=== PATIENT | female | born 1950 | race Caucasian/White ===

== ENCOUNTER 2025-05-06 14:53 | Inpatient (IN) | payer MEDICARE, SELFPAY ==
[2025-05-06] VITALS (9 sets, daily range): BP systolic 119–171; BP diastolic 59–89; PULSE 62–90; RESP 14–16; TEMP 36.7–37.2; O2SAT 9–99; BMI 21.3
--- NOTE | 2025-05-06 15:05 | ECG_ITS ---
Test Reason : WEAKNESS Blood Pressure : */* mmHG Vent. Rate : 84 BPM Atrial Rate : 84 BPM P-R Int : 150 ms QRS Dur : 110 ms QT Int : 362 ms P-R-T Axes : 63 67 41 degrees QTcB Int : 427 ms Normal sinus rhythm Incomplete right bundle branch block Borderline ECG No previous ECGs available Referred By: Kelly Leigh Electronically Signed By: William Batista
--- NOTE | 2025-05-06 15:17 | ED_ITS ---
HPI - Weakness General Chief complaint: General Medical Stated complaint: WEAK Time Seen by Provider: 05/06/25 15:04 Source: patient, EMS and old records reviewed Mode of arrival: ambulatory Limitations: no limitations History of Present Illness ED Provider: SABRINA HPI Narrative: 74 yo female with PMH of HTN on amlodipine and lisinopril. She also started venlafaxine for depression 3 days ago. She has been more depressed lately and eating and drinking less. She was with her family outside in sun x 1 hour started to get very weak, unable to stand and became sweaty. She had no CP/SOB. She admits to only drinkin 1/2 cup of water, cereal for breakfast and some crackers and maybe an ounce of cheese. She says the heat and maybe her depression ahs been affecting her appetite MD Complaint: generalized weakness Onset (ago): hour(s) (1) Duration: intermittent Location: generalized Migration: none Severity: moderate Relieving factors: none Exacerbating factors: movement and exertion Context: new medication and other Associated symptoms: loss of appetite Related Data Allergies Allergy/AdvReac Type Severity Reaction Status Date / Time No Known Allergies Allergy Verified 05/06/25 15:22 Review of Systems 2 Review of Systems: Constitutional : No Fever, No Chills, pos Fatigue, pos anorexia ENT/Mouth : No sore throat, No Rhinorrhea Eyes: No Eye Pain, No Swelling, No Redness Cardiovascular : No Chest Pain, No SOB, No Dyspnea on Exertion Respiratory : No Cough, No Sputum Gastrointestinal : No Nausea, No Vomiting, No Diarrhea, No abdominal Pain Genitourinary : No Dysuria, No Urinary Frequency Musculoskeletal : No joint pain, No Myalgias, No Joint Swelling Skin : No Skin Lesions, No rash Neuro : pos Weakness, No Numbness, No Dizziness, positive Headache All other systems reviewed and are negative [facility] Past Medical History Attestation statement: The following information was validated with the patient. Source: old records reviewed Medical History Depression HTN (hypertension) Social History Social History (Updated 05/06/25 @ 16:22 by Kelly Leigh DO) Patient Tobacco Use Status: Never used Tobacco Advance Directives: Yes Advance Directives Information Provided: No Advance Directives on File: No Physical Exam 2 Vital Signs: Vital Signs: Last Vital Signs Temp 98.9 F 05/06/25 15:21 Pulse 86 05/06/25 15:21 Resp 16 05/06/25 15:21 BP 159/70 H 05/06/25 15:21 Pulse Ox 98 05/06/25 15:21 O2 Del Method Room Air 05/06/25 15:21 BMI result Body Mass Index 21.3 Appearance: Alert. Oriented X3. No acute distress. Eyes: Pupils equal, round and reactive to light. ENT: Pharynx dry MM Neck: Normal inspection. Neck supple. CVS: Normal heart rate and rhythm. Pulses normal. Respiratory: No respiratory distress. Breath sounds normal. Abdomen: Soft and nontender. Skin: Skin warm and dry. pale skin color. Poor skin turgor Extremities: No lower extremity edema. Neuro: Oriented X 3. No motor deficit. No sensory deficit. CN2-12 intact Medications Administered Discontinued Medications Generic Name Dose Route Start Last Admin Trade Name Freq PRN Reason Stop Dose Admin Lactated Ringer's 1,000 mls @ 999 mls/hr 05/06/25 15:30 05/06/25 16:22 Lr IV 05/06/25 16:30 999 mls/hr .Q1H1M ONE Administration Medical Decision Making Medical Decision Making [facility] [place] Narrative: 74 yo female with PMH of HTN on lisinopril and amlodipine recent poor appetite possibly due to depression just started venlafaxine x 3 days ago now here with malaise, fatigue, weakness, appears dry clinically - will obtain labs, EKG, start hydration. She has no CP/SOB, no infectious symptoms and she has normal neuro exam. Differential Diagnosis Differential Diagnoses: The differential diagnosis associated with the presentation includes dehydration, depression, med reaction Admission/Observation Consideration of admission/observation: Escalation of care including admission/observation considered will admit for close Na repletion and checks Consult Healthcare Provider Management of the patient was discussed with: Switchboard Inspector Dr. Marietta mccormick ICU level of care Dr. Sawyer aware will admit Lab Data [facility] [place] Lab Attestation statement: I reviewed the patient's lab results. 05/06/25 15:45 05/06/25 15:45 Labs: Lab Results 05/06/25 Range/Units 15:45 WBC 7.0 (4.8-10.8) X10*3/uL RBC 3.61 L (4.20-5.50) X10*6/uL Hgb 10.2 L (12.0-16.0) g/dl Hct 28.1 L (37.0-47.0) % MCV 77.8 L (80.0-98.0) fL MCH 28.3 (27.0-33.0) pg MCHC 36.3 H (31.0-35.0) g/dl RDW 13.0 (11.0-16.0) % Plt Count 251 (160-400) X10*3/uL MPV 8.1 L (9.4-12.3) fL Immature Gran % (Auto) 0.7 H (0.0-0.4) % Neut % (Auto) 73.5 H (45-73) % Lymph % (Auto) 14.8 L (20-40) % [place] % (Auto) 10.0 (2-11) % Eos % (Auto) 0.6 (0-4) % Baso % (Auto) 0.4 (0-2) % Lymph # (Auto) 1.0 L (1.2-4.9) X10*3/uL [place] # (Auto) 0.7 (0.1-1.2) X10*3/uL Eos # (Auto) 0.0 (0.0-0.4) X10*3/uL Baso # (Auto) 0.0 (0.0-0.2) X10*3/uL Abs Immat Gran (auto) 0.05 H (0.00-0.03) X10*3/uL Absolute Neuts (auto) 5.2 (2.0-8.3) x10*3/uL Absolute Nucleated RBC 0.000 (0.0-0.012) X10*3/uL Nucleated RBC % (auto) 0.0 (0.0-0.2) /100WBC Sodium 118 L* (135-145) mmol/L Potassium 3.8 (3.3-5.1) mmol/L Chloride 90 L (96-108) mmol/L Carbon Dioxide 20 L (22-29) mmol/L Anion Gap 12 (12-20) BUN 16 (9-16) mg/dL Creatinine 0.58 (0.5-1.4) mg/dL Estim Creat Clear Calc 66.1 Estimated GFR > 60 Random Glucose 99 (60-115) mg/dL Calcium 8.1 L (8.4-10.2) mg/dL Magnesium 1.8 (1.6-2.6) mg/dL Total Bilirubin 0.8 (0.0-1.0) mg/dL Direct Bilirubin 0.3 (0.0-0.5) mg/dL AST 19 (5-31) U/L ALT 14 (0-31) U/L Alkaline Phosphatase 66 (39-117) U/L Total Creatine Kinase 147 H (26-140) U/L Total Protein 5.7 L (6.5-8.0) g/dL Albumin 4.0 (3.5-5.0) g/dL Lipase 54 (8-78) U/L Independent Interpretation I performed an independent interpretation of an: EKG Interpretation: Rate: 84 Rhythm: NSR [place]: normal Normal P waves. Normal [place]. incomplete RBBB ST T wave : no [place], inverted t waves V1 qTC: 427 prior studies: no prior The study has been interpreted contemporaneously by me. Independent Historian Clinical information obtained from an independent historian. History obtained from or confirmed by: EMS Critical Care Time Critical Care Time Critical Care Time: Yes Total Critical Care Time: 35 Attestation: EKG, medical consult, lyte abnormality assessment, neuro check, ICU admission I attest to this time spent taking care of the patient Discharge Plan Discharge Clinical Impression: Acute hyponatremia, Malaise Patient Disposition: Admitted As Inpatient Print Language: Citizen Of [place]
[2025-05-06 15:51] LABS: MANUAL DIFF FLAG NO
[2025-05-06 15:52] LABS: Hematocrit 28.1 % (37.0-47.0); Hemoglobin 10.2 g/dl (12.0-16.0); Imm Gran Abs Auto 0.05 X10*3/uL (0.00-0.03); Imm Gran Pct Auto 0.7 % (0.0-0.4); Lymphocytes Absolute Auto 1.0 X10*3/uL (1.2-4.9); Mean Corpuscular HGB Conc 36.3 g/dl (31.0-35.0); Mean Corpuscular Hemoglobin 28.3 pg (27.0-33.0); Mean Corpuscular Volume 77.8 fL (80.0-98.0); NRBC Abs Auto 0.000 X10*3/uL (0.0-0.012); NRBC Pct Auto 0.0 /100WBC (0.0-0.2); Platelet Count 251 X10*3/uL (160-400); Red Blood Count 3.61 X10*6/uL (4.20-5.50); White Blood Count 7.0 X10*3/uL (4.8-10.8)
[2025-05-06 16:10] LABS: Alanine Aminotransferase 14 U/L (0-31); Albumin Level 4.0 g/dL (3.5-5.0); Alkaline Phosphatase 66 U/L (39-117); Anion Gap 12 (12-20); Aspartate Amino Transferase 19 U/L (5-31); Blood Urea Nitrogen 16 mg/dL (9-16); Calcium 8.1 mg/dL (8.4-10.2); Carbon Dioxide 20 mmol/L (22-29); Chloride 90 mmol/L (96-108); Creatinine Clr Calc Pharmacy 66.1; Estimated Glomerular Filt Rate > 60; Lipase 54 U/L (8-78); Magnesium 1.8 mg/dL (1.6-2.6); Potassium 3.8 mmol/L (3.3-5.1); Sodium 118 mmol/L (135-145); Total Protein 5.7 g/dL (6.5-8.0)
[2025-05-06] MEDS: Lactated Ringers 1,000 ML 999 ML IV (16:22)
[2025-05-06 17:01] LABS: Osmolality, Serum 252 mosm/kg (281-305)
[2025-05-06 17:05] LABS: Appearance Urine Clear; Glucose Urine UA Negative (Negative); PH 6.5 (5.0-9.0); Specific Gravity - Urine 1.015 (1.005-1.025); UMIC TRIGGER UACC YES
--- NOTE | 2025-05-06 18:08 | PHA.MEDREC ---
Addendum entered by Carmen Tilley RPh 05/06/25 18:17: reviewed by [facility]. Original Note: Pharmacy Consult ? Medication Reconciliation Pharmacy has completed the medication reconciliation. Patient was able to confirm all her medications. Patient states she is not taking Mirtazapine 15 mg, and Propranolol 60 mg. Patient confirmed she is taking Amlodipine 2.5 mg daily and Venlafaxine 37.5 mg daily. Patient last had her medications last night.
[2025-05-06 18:34] LABS: Anion Gap 14 (12-20); Blood Urea Nitrogen 13 mg/dL (9-16); Calcium 8.6 mg/dL (8.4-10.2); Carbon Dioxide 20 mmol/L (22-29); Chloride 91 mmol/L (96-108); Creatinine Clr Calc Pharmacy 66.1; Estimated Glomerular Filt Rate > 60; Potassium 3.6 mmol/L (3.3-5.1); Sodium 121 mmol/L (135-145)
--- NOTE | 2025-05-06 20:00 | PM.CCHP ---
History of Present Illness Date of Service: 05/06/25 Attending physician on admission: Mihir Sawyer Chief Complaint: Generalized weakness 74-year-old female with a past medical history of? hypertension on amlodipine and lisinopril, She also started venlafaxine for depression 3 days ago.? She presented to the emergency department with complaints of weakness.? States, she has been more depressed lately and eating and drinking less.? ?In the emergency department,? vital signs stable.? Laboratory data was significant for serum sodium 118, chloride 90, bicarb 20, ? Serum os to 52 ?ED course:? Received 1 L bolus of LR. Review of Systems Review of Systems: Yes all other systems are reviewed and are negative PMFSH Past Medical History Medical History (Updated 05/06/25 @ 20:19 by Jeniffer Whitehead NP) Depression HTN (hypertension) Social History Social History (Updated 05/06/25 @ 16:22 by Kelly Leigh DO) Housing: House Do you presently have visiting nurse or other home services: No Patient Tobacco Use Status: Never used Tobacco Smoked in Last 30 Days: No e-Cigarette/Vaping Use: Never Used Patient Interested in Nicotine Replacement: No Currently Displaying Signs/Symptoms of Drug Intoxication Withdrawal: No Have you been hit, kicked, punched, or otherwise hurt by someone within the past year? If so, by whom?: No Do you feel safe in your current relationship?: No Current Relationship Is there a partner from a previous relationship who is making you feel unsafe now?: No Are you made to feel afraid or neglected: No Spiritual Healthcare Practices: none Advance Directives: Yes Advance Directives Information Provided: No Advance Directives on File: No Advance Directives Date on File: 05/06/25 Do you have a plan to hurt others: No Plan Recently lost weight without trying: Unsure Eating poorly because of decreased appetite: Yes Nutrition Risks: Anorexia Patient : No : No Poor oral hygiene: No Meds Allergies Allergy/AdvReac Type Severity Reaction Status Date / Time No Known Allergies Allergy Verified 05/06/25 15:22 Active Medications: Current Medications Heparin Sodium (Porcine) (Heparin Sodium,Porcine 5,000 Unit/Ml Vial) 5,000 unit SUBCUT Q8H [facility] Last Admin: 05/06/25 17:26 Dose: 5,000 unit Home Medications ?Medication ?Instructions ?Recorded ?Confirmed ?Last Taken ?Type amlodipine 2.5 mg tablet 2.5 mg PO DAILY 05/06/25 05/06/25 05/05/25 History ascorbic acid (vitamin C) 500 mg 500 mg PO DAILY 05/06/25 05/06/25 05/05/25 History tablet (Vitamin C) cholecalciferol (vitamin D3) 25 25 mcg PO DAILY 05/06/25 05/06/25 05/05/25 History mcg (1,000 unit) tablet (Vitamin D3) lisinopril 40 mg tablet 40 mg PO DAILY 05/06/25 05/06/25 05/05/25 History venlafaxine 37.5 mg 37.5 mg PO DAILY 05/06/25 05/06/25 05/05/25 History capsule,extended release 24 hr vitamins A,C,P-dhlu-[id number] 4,296 1 cap PO BID 05/06/25 05/06/25 05/05/25 History mcg-226 mg-90 mg capsule (PreserVision AREDS) Physical Exam Exam: Exam: Constitutional: Alert, in no distress. Sitting comfortably on the hospital bed. Mental Status: Oriented to person, place and time. Head: Normocephalic. Eyes: Pupils are equal, round and reactive to light. Extraocular muscles intact. Ear, Nose and Throat: Oropharynx clear, mucous membranes moist. Ears and nose without masses, lesions or deformities. Trachea midline. Neck: Supple, Full range of motion. Respiratory: Expiratory wheezing in all lung [place].? Minor increased work of breathing.? Cardiovascular: S1 S2 regular. No murmurs, rubs or gallops. Gastrointestinal: Abdomen soft, non-tender, non-distended. Normal bowel sounds. No pulsatile mass. No hepatosplenomegaly. Genitourinary: No costovertebral angle tenderness. Neurologic: Cranial nerves II-XII grossly intact. No focal neurological deficits. Moves all extremities spontaneously. Sensation intact bilaterally. Skin: No rashes or lesions. No petechiae or purpura. no edema Musculoskeletal: No cyanosis or clubbing. No gross deformities. Normal range of motion. Heme/Lymphatics/Immun: Palpation of neck reveals no swelling or tenderness of neck nodes. Psychiatric: Normal mood and affect Vital Signs: Vital Signs: Last Vital Signs Temp 98.9 F 05/06/25 15:21 Pulse 85 08/14/25 18:00 Resp 14 05/06/25 18:00 BP 170/81 H 05/06/25 18:00 Pulse Ox 99 05/06/25 18:00 O2 Del Method Room Air 05/06/25 18:00 BMI result Body Mass Index 21.3 Results Labs 05/07/25 04:26 05/07/25 04:26 Labs: Laboratory Results - last 24 hr 05/06/25 05/06/25 05/06/25 06:05 08:30 15:45 MCV 77.8 L MCH 28.3 MCHC 36.3 H RDW 13.0 Plt Count 251 MPV 8.1 L Immature Gran % (Auto) 0.7 H Neut % (Auto) 73.5 H Lymph % (Auto) 14.8 L [place] % (Auto) 10.0 Eos % (Auto) 0.6 Baso % (Auto) 0.4 Lymph # (Auto) 1.0 L [place] # (Auto) 0.7 Eos # (Auto) 0.0 Baso # (Auto) 0.0 Abs Immat Gran (auto) 0.05 H Absolute Neuts (auto) 5.2 Absolute Nucleated RBC 0.000 Nucleated RBC % (auto) 0.0 Hold Purple Top SEE NOTE Anion Gap 12 Estim Creat Clear Calc 66.1 Estimated GFR > 60 Random Glucose 99 Osmolality 252 L Calcium 8.1 L Magnesium 1.8 Total Bilirubin 0.8 Direct Bilirubin 0.3 AST 19 ALT 14 Alkaline Phosphatase 66 Total Creatine Kinase 147 H Total Protein 5.7 L Albumin 4.0 Lipase 54 Urine Color Urine Appearance Urine pH Ur Specific [place] Urine Protein Urine Glucose (UA) Urine Ketones Urine Blood Urine Nitrite Ur Leukocyte Esterase Urine RBC Urine WBC Ur Squamous Epith Cells Urine Bacteria Hyaline Casts Ur Random Sodium Urine Creatinine 05/06/25 05/06/25 16:52 18:03 MCV MCH MCHC RDW Plt Count MPV Immature Gran % (Auto) Neut % (Auto) Lymph % (Auto) [place] % (Auto) Eos % (Auto) Baso % (Auto) Lymph # (Auto) [place] # (Auto) Eos # (Auto) Baso # (Auto) Abs Immat Gran (auto) Absolute Neuts (auto) Absolute Nucleated RBC Nucleated RBC % (auto) Hold Purple Top Anion Gap 14 Estim Creat Clear Calc 66.1 Estimated GFR > 60 Random Glucose 99 Osmolality Calcium 8.6 D Magnesium Total Bilirubin Direct Bilirubin AST ALT Alkaline Phosphatase Total Creatine Kinase Total Protein Albumin Lipase Urine Color Yellow Urine Appearance Clear Urine pH 6.5 Ur Specific [place] 1.015 Urine Protein Negative Urine Glucose (UA) Negative Urine Ketones 15 Urine Blood Trace H Urine Nitrite Negative Ur Leukocyte Esterase Negative Urine RBC 11-20 H Urine WBC 0-5 Ur Squamous Epith Cells 0-2 Urine Bacteria None Seen Hyaline Casts 0-2 Ur Random Sodium 34.0 Urine Creatinine 61.83 Assessment and Plan (1) Acute hyponatremia: Status: Acute (2) HTN (hypertension): Status: Acute (3) Depression: Status: Acute Plan 74-year-old female with a past medical history of? hypertension and depression on amlodipine and lisinopril, and recently started on venlafaxine for depression? admitted to ICU for management of acute hyponatremia associated with recent initiation on venlafaxine and poor p.o. intake ?Plan:? Neuro:? no acute issues Cardiac:?Underlying hypertension:? on lisinopril and amlodipine at home.? We will hold until sodium levels appropriate.? Pulmonary:? No acute issues Renal:? Acute hyponatremia? -? medication? and poor p.o. Intake induced.? Patient was recently started on? venlafaxine,? and admits to poor p.o. Intake,? not drinking water and being exposed to heat.? Received 1 L bolus of LR in the emergency department.? Initial sodium 118,? improving to 121.? No neurological deficits.? Continue regular diet.? No need for water restriction.? Frequent neuro checks Endo:? No acute issues.?? GI:? no acute issues ID: no acute issues. Heme/Onc:? No acute issues. Psych:? No acute issues. Miscellaneous: ? no acute issues Diet: regular diet? Prophylaxis: subcut Heparin, No GI prophylaxis at this time Critical care time:? X 30 minutes of critical care time Code? status:? FULL CODE?
[2025-05-06 20:37] LABS: Anion Gap 9 (12-20); Blood Urea Nitrogen 12 mg/dL (9-16); Calcium 8.6 mg/dL (8.4-10.2); Carbon Dioxide 25 mmol/L (22-29); Chloride 93 mmol/L (96-108); Creatinine Clr Calc Pharmacy 59.0; Estimated Glomerular Filt Rate > 60; Potassium 3.4 mmol/L (3.3-5.1); Sodium 124 mmol/L (135-145)
[2025-05-07] VITALS (13 sets, daily range): BP systolic 119–182; BP diastolic 57–85; PULSE 58–83; RESP 13–18; TEMP 36.1–36.7; O2SAT 94–99; BMI 20.7
[2025-05-07 04:57] LABS: MANUAL DIFF FLAG NO
[2025-05-07 05:00] LABS: Hematocrit 31.4 % (37.0-47.0); Hemoglobin 11.4 g/dl (12.0-16.0); Imm Gran Abs Auto 0.02 X10*3/uL (0.00-0.03); Imm Gran Pct Auto 0.3 % (0.0-0.4); Lymphocytes Absolute Auto 1.8 X10*3/uL (1.2-4.9); Mean Corpuscular HGB Conc 36.3 g/dl (31.0-35.0); Mean Corpuscular Hemoglobin 28.2 pg (27.0-33.0); Mean Corpuscular Volume 77.7 fL (80.0-98.0); NRBC Abs Auto 0.000 X10*3/uL (0.0-0.012); NRBC Pct Auto 0.0 /100WBC (0.0-0.2); Platelet Count 299 X10*3/uL (160-400); Red Blood Count 4.04 X10*6/uL (4.20-5.50); White Blood Count 6.4 X10*3/uL (4.8-10.8)
[2025-05-07 05:16] LABS: Albumin Level 4.2 g/dL (3.5-5.0); Anion Gap 14 (12-20); Blood Urea Nitrogen 11 mg/dL (9-16); Calcium 8.9 mg/dL (8.4-10.2); Carbon Dioxide 23 mmol/L (22-29); Chloride 95 mmol/L (96-108); Creatinine Clr Calc Pharmacy 66.1; Estimated Glomerular Filt Rate > 60; Magnesium 2.1 mg/dL (1.6-2.6); Potassium 3.3 mmol/L (3.3-5.1); Sodium 129 mmol/L (135-145)
--- NOTE | 2025-05-07 07:02 | PC.NURSE ---
Assumed care of patient at 2300 Patient alert and oriented x4, denies pain or discomfort, one assist to commode, slightly unsteady balance noted this AM, patient drowsy, IV infiltrated and changed out, IVF infusing as ordered see MAR for full details
[2025-05-07] MEDS: Potassium Chloride Packet 20 MEQ PACKET 40 MEQ PO (08:21)
--- NOTE | 2025-05-07 08:59 | P.PNCC_ITS ---
Subjective Subjective Date of Service: 05/07/25 Interval History: 74-year-old lady with underlying history of hypertension recently started on venlafaxine for depressive symptoms admitted on 05/06/2025 with malaise and hyponatremia of 118 without neurologic symptoms. She has received a L bolus of LR in emergency room and was admitted to the intensive care unit for close monitoring. No events overnight. Sodium level is improving. Critical Care Time (minutes): 0 Physical Exam 2 Vital Signs: Vital Signs: Last Vital Signs Temp 97.0 F 05/07/25 08:00 Pulse 82 05/07/25 08:00 Resp 13 05/07/25 08:00 BP 132/69 05/07/25 08:00 Pulse Ox 99 05/07/25 08:00 O2 Del Method Room Air 05/07/25 08:00 BMI result Body Mass Index 20.7 Const: General: no acute distress and alert Nutritional Appearance: not obese Orientation/consciousness: Other orientation findings ( oriented) HEENT: Head: Yes atraumatic Eyes: General: appearance normal, both eyes and all related structures S clerae: sclerae normal EOM: EOMs intact bilaterally Neck: Neck: Yes supple Lymphatic: no lymphadenopathy noted Resp: Effort & Inspection: normal respiratory effort and no use of accessory muscles Auscultation: clear to auscultation bilaterally Cardio: Rate: regular rate Rhythm: regular rhythm Heart sounds: no gallops, no murmurs and no rubs Skin: General skin exam: other ( warm) Extrem: General: No clubbing, No cyanosis and No edema Objective Data Labs 05/07/25 04:26 05/07/25 04:26 Labs: Laboratory Results - last 24 hr 05/06/25 05/06/25 05/06/25 06:05 08:30 15:45 WBC 7.0 RBC 3.61 L Hgb 10.2 L Hct 28.1 L MCV 77.8 L MCH 28.3 MCHC 36.3 H RDW 13.0 Plt Count 251 MPV 8.1 L Immature Gran % (Auto) 0.7 H Neut % (Auto) 73.5 H Lymph % (Auto) 14.8 L [place] % (Auto) 10.0 Eos % (Auto) 0.6 Baso % (Auto) 0.4 Lymph # (Auto) 1.0 L [place] # (Auto) 0.7 Eos # (Auto) 0.0 Baso # (Auto) 0.0 Abs Immat Gran (auto) 0.05 H Absolute Neuts (auto) 5.2 Absolute Nucleated RBC 0.000 Nucleated RBC % (auto) 0.0 Hold Purple Top SEE NOTE Sodium 118 L* Potassium 3.8 Chloride 90 L Carbon Dioxide 20 L Anion Gap 12 BUN 16 Creatinine 0.58 Estim Creat Clear Calc 66.1 Estimated GFR > 60 Random Glucose 99 Osmolality 252 L Calcium 8.1 L Phosphorus Magnesium 1.8 Total Bilirubin 0.8 Direct Bilirubin 0.3 AST 19 ALT 14 Alkaline Phosphatase 66 Total Creatine Kinase 147 H Total Protein 5.7 L Albumin 4.0 Lipase 54 Urine Color Urine Appearance Urine pH Ur Specific [place] Urine Protein Urine Glucose (UA) Urine Ketones Urine Blood Urine Nitrite Ur Leukocyte Esterase Urine RBC Urine WBC Ur Squamous Epith Cells Urine Bacteria Hyaline Casts Ur Random Sodium Urine Creatinine 05/06/25 05/06/25 05/06/25 16:52 18:03 20:10 WBC RBC Hgb Hct MCV MCH MCHC RDW Plt Count MPV Immature Gran % (Auto) Neut % (Auto) Lymph % (Auto) [place] % (Auto) Eos % (Auto) Baso % (Auto) Lymph # (Auto) [place] # (Auto) Eos # (Auto) Baso # (Auto) Abs Immat Gran (auto) Absolute Neuts (auto) Absolute Nucleated RBC Nucleated RBC % (auto) Hold Purple Top Sodium 121 L 124 L Potassium 3.6 3.4 Chloride 91 L 93 L Carbon Dioxide 20 L 25 Anion Gap 14 9 L BUN 13 12 Creatinine 0.58 0.65 Estim Creat Clear Calc 66.1 59.0 Estimated GFR > 60 > 60 Random Glucose 99 122 H Osmolality Calcium 8.6 D 8.6 Phosphorus Magnesium Total Bilirubin Direct Bilirubin AST ALT Alkaline Phosphatase Total Creatine Kinase Total Protein Albumin Lipase Urine Color Yellow Urine Appearance Clear Urine pH 6.5 Ur Specific [place] 1.015 Urine Protein Negative Urine Glucose (UA) Negative Urine Ketones 15 Urine Blood Trace H Urine Nitrite Negative Ur Leukocyte Esterase Negative Urine RBC 11-20 H Urine WBC 0-5 Ur Squamous Epith Cells 0-2 Urine Bacteria None Seen Hyaline Casts 0-2 Ur Random Sodium 34.0 Urine Creatinine 61.83 05/07/25 04:26 WBC 6.4 RBC 4.04 L Hgb 11.4 L Hct 31.4 L MCV 77.7 L MCH 28.2 MCHC 36.3 H RDW 13.1 Plt Count 299 MPV 8.4 L Immature Gran % (Auto) 0.3 Neut % (Auto) 58.6 Lymph % (Auto) 28.3 [place] % (Auto) 11.6 H Eos % (Auto) 0.6 Baso % (Auto) 0.6 Lymph # (Auto) 1.8 [place] # (Auto) 0.7 Eos # (Auto) 0.0 Baso # (Auto) 0.0 Abs Immat Gran (auto) 0.02 Absolute Neuts (auto) 3.7 Absolute Nucleated RBC 0.000 Nucleated RBC % (auto) 0.0 Hold Purple Top Sodium 129 L Potassium 3.3 Chloride 95 L Carbon Dioxide 23 Anion Gap 14 BUN 11 Creatinine 0.58 Estim Creat Clear Calc 66.1 Estimated GFR > 60 Random Glucose 84 Osmolality Calcium 8.9 Phosphorus 3.0 Magnesium 2.1 Total Bilirubin Direct Bilirubin AST ALT Alkaline Phosphatase Total Creatine Kinase Total Protein Albumin 4.2 Lipase Urine Color Urine Appearance Urine pH Ur Specific [place] Urine Protein Urine Glucose (UA) Urine Ketones Urine Blood Urine Nitrite Ur Leukocyte Esterase Urine RBC Urine WBC Ur Squamous Epith Cells Urine Bacteria Hyaline Casts Ur Random Sodium Urine Creatinine Progress Note: A&P Assessment and plan (1) Acute hyponatremia: Status: Acute (2) Malaise: Status: Acute Plan Assessment: 74-year-old lady admitted with acute asymptomatic hyponatremia likely secondary to venlafaxine effect Plan: Neuro: No acute issues. Cardiac: No acute issues. Pulmonary: No acute issues. Renal: Acute hyponatremia, asymptomatic. Improved. Continue to monitor sodium level. Endo: No acute issues. GI: No acute issues. ID: No acute issues Heme/Onc: No acute issues. Psych: No acute issues. Miscellaneous: No acute issues. Prophylaxis: Heparin Diet: Regular Quality Stroke Does the patient have a stroke diagnosis?: No VTE Prior VTE?: No VTE Risk Level:: Medical - moderate - high VTE Device Contraindication: Treatment Not Indicated VTE Drug Contraindication: N/A - Med Ordered
[2025-05-07 10:21] LABS: Anion Gap 11 (12-20); Blood Urea Nitrogen 10 mg/dL (9-16); Calcium 8.8 mg/dL (8.4-10.2); Carbon Dioxide 24 mmol/L (22-29); Chloride 94 mmol/L (96-108); Creatinine Clr Calc Pharmacy 65.0; Estimated Glomerular Filt Rate > 60; Potassium 4.0 mmol/L (3.3-5.1); Sodium 125 mmol/L (135-145)
--- NOTE | 2025-05-07 13:52 | MHC.CM.PN ---
IMM 05/07/25, EMR REVIEWED, PT ADMITTED TO ICU W/CRITICALLY LOW SODIUM, CM MET W/PT WHO REPORTS SHE LIVES ALONE, IS FULLY INDEP W/CARE, DENIES USE OF DME/SERVICES HOWEVER DOES HAVE A CANE/WALKER AT HOME THAT HER FATHER USED. PT REPORTS HER GOAL IS TO DC HOME TODAY, PT'S RN REPORTS PT ASKING TO DC DENZEL HOWEVER DID NOT MENTION ANY URGENCY TO THIS CM. PT VERIFIES PCP ON FILE IS CORRECT AND SHE WILL FOLLOW UP W/DR. SUÁREZ REGARDING NEW ANTIDEPRESSANT THAT WAS ORDERED. PT REPORTS HER HCP IS HER SISTER RAJINDER AKHTAR [phone] AND THAT BOTH SHE AND HER SISTER HAVE A COPY, CM HAS REQUESTED COPY.
[2025-05-08 03:19] VITALS: BP 129/67; PULSE 80; RESP 18; TEMP 36.4; O2SAT 98
[2025-05-08 07:00] LABS: Hematocrit 35.6 % (37.0-47.0); Hemoglobin 12.6 g/dl (12.0-16.0); Mean Corpuscular HGB Conc 35.4 g/dl (31.0-35.0); Mean Corpuscular Hemoglobin 28.3 pg (27.0-33.0); Mean Corpuscular Volume 79.8 fL (80.0-98.0); NRBC Abs Auto 0.000 X10*3/uL (0.0-0.012); NRBC Pct Auto 0.0 /100WBC (0.0-0.2); Platelet Count 336 X10*3/uL (160-400); Red Blood Count 4.46 X10*6/uL (4.20-5.50); White Blood Count 6.0 X10*3/uL (4.8-10.8)
[2025-05-08 07:17] LABS: Anion Gap 17 (12-20); Blood Urea Nitrogen 13 mg/dL (9-16); Calcium 9.4 mg/dL (8.4-10.2); Carbon Dioxide 24 mmol/L (22-29); Chloride 92 mmol/L (96-108); Creatinine Clr Calc Pharmacy 51.9; Estimated Glomerular Filt Rate > 60; Potassium 3.8 mmol/L (3.3-5.1); Sodium 129 mmol/L (135-145)
--- NOTE | 2025-05-08 07:36 | PM.DS ---
DS: Providers Provider Date of Service: 05/08/25 Date of admission: 05/06/25 16:49 Date of discharge: 05/08/25 Primary care physician: Aide Hancock MD DS: Diagnosis Discharge Diagnosis (1) Acute hyponatremia: Status: Acute (2) Malaise: Status: Acute DS: Summary Hospital Course Hospital Course: from initial hpi: 74-year-old female with a past medical history of? hypertension on amlodipine and lisinopril, She also started venlafaxine for depression 3 days ago.? She presented to the emergency department with complaints of weakness.? States, she has been more depressed lately and eating and drinking less.? ?In the emergency department,? vital signs stable.? Laboratory data was significant for serum sodium 118, chloride 90, bicarb 20, ? Serum os to 52 ?ED course:? Received 1 L bolus of LR. 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 intake and overheating. Patient was given gentle hydration and sodium was monitored closely and improved at appropriate rate. Sodium is 129 at time of discharge. Ideally patient would be monitored a little longer, however, patient requesting to discharge home and follow up outpatient. She should avoid excessive fluid intake, can have a cell permissive diet and should repeat sodium early next week, venlafaxine has been discontinued. For hypertension continued on amlodipine and lisinopril. Time Attestation Discharge Coordination Time (in mins): 33 Quality: Safe Use of Opioids Does Pt have an Active Cancer Diagnosis on the Problem List?: No Quality: Stroke Does the patient have a stroke diagnosis?: No Physical Exam Exam: Exam: General: AO X 3, no acute distress Resp: CTA bilateral, no accessory muscles used CVS: S1,S2,RRR GI: soft, non tender, non distended Neuro: motor grossly intact, alert Psych: appropriate affect, appropriate insight Vital Signs: Vital Signs: Last Vital Signs Temp 97.5 F 05/08/25 03:19 Pulse 80 05/08/25 03:19 Resp 18 05/08/25 03:19 BP 129/67 05/08/25 03:19 Pulse Ox 98 05/08/25 03:19 O2 Del Method Room Air 05/08/25 03:19 BMI result Body Mass Index 20.7 DS: Data Data Completed and Pending Labs on day of discharge: Laboratory Results - last 24 hr 05/07/25 05/08/25 09:58 06:44 WBC 6.0 RBC 4.46 Hgb 12.6 Hct 35.6 L MCV 79.8 L MCH 28.3 MCHC 35.4 H RDW 13.2 Plt Count 336 MPV 8.4 L Absolute Nucleated RBC 0.000 Nucleated RBC % (auto) 0.0 Sodium 125 L 129 L Potassium 4.0 D 3.8 Chloride 94 L 92 L Carbon Dioxide 24 24 Anion Gap 11 L 17 BUN 10 13 Creatinine 0.59 0.74 Estim Creat Clear Calc 65.0 51.9 Estimated GFR > 60 > 60 Random Glucose 117 H 99 Calcium 8.8 9.4 D Discharge Plan Discharge Anticipated Discharge Date/Time: 05/08/25 07:33 Patient Disposition: Home, Self-Care Discharge Diagnosis: hypotnatremia Referrals: Aide Hancock MD [Primary Care Provider, [facility]] - 1 Week Discharge Medications: Continued amlodipine 2.5 mg tablet 2.5 mg PO DAILY lisinopril 40 mg tablet 40 mg PO DAILY ascorbic acid (vitamin C) [Vitamin C] 500 mg Tablet 500 mg PO DAILY cholecalciferol (vitamin D3) [Vitamin D3] 25 mcg (1,000 unit) Tablet 25 mcg PO DAILY PreserVision AREDS 4,296 mcg-226 mg-90 mg Capsule 1 cap PO BID Discontinued venlafaxine 37.5 mg capsule,extended release 24hr 37.5 mg PO DAILY Discharge Orders: Discharge Order (Routine); Ordered 05/08/25 Ordered By: Lawrence Paulino Diet: Advance to usual diet Activity on Discharge: As tolerated Stand Alone Forms: Patient Portal Discharge page Print Language: Spanish Other Ambulatory Orders: Basic Metabolic Panel (Routine) Timeframe: 3 Days Facility: [facility] - Location: Laboratory Ordered By: Lawrence Paulino Care Plan Goals: recovery Health Concerns: low sodium Plan of Treatment: salt permissive diet, avoid excessive free fluid, recheck sodium next week Assessment: see above Patient Instructions: Hyponatremia (DC)
[2025-05-08 07:49] VITALS: BP 157/72; PULSE 71; RESP 18; TEMP 36.2; O2SAT 99
--- NOTE | 2025-05-08 08:21 | MHC.CM.PN ---
PT CLEARED TO DC HOME TODAY WITH NO SERVICES PT TO ARRANGE TRANSPORT
== END 2025-05-08 09:28 | disposition home or self-care (01) | DRG 641 ==
LOC: HO.ED 16:29 → HO.EDOVER 16:59 → HO.ICU 17:21 → HO.S3 05-07 10:23
PROVIDERS: Registered Nurse Community Health; Admitting Provider Internal Medicine Pulmonary Disease; Emergency Provider Emergency Medicine; PCP Family Medicine; Visit Provider Internal Medicine
DX: E87.1 Hypo-osmolality and hyponatremia (principal); I10 Essential (primary) hypertension; T43.215A Adverse effect of selective serotonin and norepinephrine reuptake inhibitors, initial encounter; F32.A Depression, unspecified; Z79.899 Other long term (current) drug therapy
CPT/HCPCS: 36415; 80048; 80076; 81001; 81003; 82040; 82550; 82570; 83690; 83735; 83930; 84100; 84300; 85025; 85027; 93005; 99285; J1644; J7120

== ENCOUNTER → 2025-05-06 15:05 | Outpatient (BNV) | payer MEDICARE, SELFPAY | PROVIDERS: Admitting Provider Internal Medicine Pulmonary Disease; Emergency Provider Emergency Medicine; PCP Family Medicine; Visit Provider Internal Medicine Cardiovascular Disease | DX: I45.10 Unspecified right bundle-branch block (principal) | CPT/HCPCS: 93010 ==

== ENCOUNTER → 2025-05-06 16:49 | Outpatient (BNV) | payer MEDICARE, SELFPAY | PROVIDERS: Admitting Provider Internal Medicine Pulmonary Disease; Emergency Provider Emergency Medicine; PCP Family Medicine; Visit Provider Registered Nurse Community Health | DX: E87.1 Hypo-osmolality and hyponatremia (principal); I10 Essential (primary) hypertension; F32.A Depression, unspecified | CPT/HCPCS: 99223 ==

== ENCOUNTER → 2025-05-06 16:49 | Outpatient (BNV) | payer MEDICARE, SELFPAY | PROVIDERS: Admitting Provider Internal Medicine Pulmonary Disease; Emergency Provider Emergency Medicine; PCP Family Medicine; Visit Provider Internal Medicine | DX: E87.1 Hypo-osmolality and hyponatremia (principal); R53.81 Other malaise | CPT/HCPCS: 99239 ==

== ENCOUNTER → 2025-05-06 16:49 | Outpatient (BNV) | payer MEDICARE, SELFPAY | PROVIDERS: Admitting Provider Internal Medicine Pulmonary Disease; Emergency Provider Emergency Medicine; PCP Family Medicine; Visit Provider Internal Medicine Pulmonary Disease | DX: E87.1 Hypo-osmolality and hyponatremia (principal); R53.81 Other malaise | CPT/HCPCS: 99231 ==